=== PATIENT | female | born 1965 | race Two or more races ===

== ENCOUNTER → 2024-11-22 | Outpatient (CLI) | payer SELFPAY ==
[2024-11-22 17:39] LABS: Glucose Estimated Average 237 mg/dL (80-131); Hemoglobin A1C 9.9 % Hgb (4.8-6.0)
== END | disposition home or self-care (01) ==
PROVIDERS: PCP Physician Assistant; Referring Provider Physician Assistant; Visit Provider Physician Assistant
DX: R73.01 Impaired fasting glucose (principal)
CPT/HCPCS: 36415; 83036